=== PATIENT | female | born 1935 | race Caucasian/White ===

== ENCOUNTER 2018-05-16 10:56 | Inpatient (IN) | payer OTHER ==
[~2018-05-16] VITALS: Ht 162.6 cm; Wt 103.9 kg
[~2018-05-16 10:56] MED LIST: ASPIRIN325 PO; COLACE 100 MG100 MG PO; GEMFIBROZIL 60600 MG PO; LEXAPRO 10 MG T10 M1 PO; LOTENSIN20 MG PO; NIASPAN 500 MG500 M1 PO; OMEPRAZOLE20 MG PO; ONDANSETRON HCL4 M2 PO; PERCOCET PO; PRAVACHOL40 MG PO; PREMARIN0.625 MG PO; PREMARIN30 GM VAG; PROTONIX40 M1 PO; SULFAMETHOXAZO1 EAC1 PO; VERAPAMIL ER120 MG PO
[2018-05-16 10:57] VITALS: BP 168/80
[2018-05-16 11:41] LABS: URINE BILIRUBIN NEGATIVE (Negative); URINE CLARITY CLEAR; URINE COLOR YELLOW; URINE GLUCOSE-RANDOM* NEGATIVE (Negative); URINE KETONES NEGATIVE (Negative); URINE PROTEIN (DIPSTICK) NEGATIVE (Negative)
[2018-05-16 11:42] LABS: URINE BLOOD NEGATIVE (Negative); URINE LEUKOCYTES-REFLEX NEGATIVE (Negative); URINE NITRITE-REFLEX NEGATIVE (Negative); URINE UROBILINOGEN 0.2 E.U./dl (0.2-1.0)
[2018-05-16 12:04] LABS: ABSOLUTE NEUTROPHILS 5.7 thou/uL (1.4-8.2); BASOPHILS 0.4 % (0.0-2.0); EOSINOPHILS 1.2 % (0.0-3.0); HEMOGLOBIN 13.6 gm/dL (12.0-15.0); LYMPHOCYTES 9.9 % (24.0-44.0); MCH 30.2 pg (26.0-34.0); MCV 88.9 fL (80.0-100.0); MONOCYTES 6.2 % (1.0-8.0); PLATELET COUNT 183 thou/uL (150-400); POLYS 82.3 % (36.0-66.0); RDW 13.2 % (10.5-14.5); WBC 6.9 thou/uL (4.0-11.0)
[2018-05-16 12:15] LABS: CALCIUM 9.7 mg/dL (8.5-10.1); CREATININE 1.1 mg/dL (0.6-1.0); POTASSIUM 4.2 mmol/L (3.5-5.1)
[2018-05-16] MEDS ORDERED: ASPIRIN325 PO (13:50)
[2018-05-16] MEDS ORDERED: ELLURA200 MG PO (14:01)
[2018-05-16] MEDS ORDERED: AAA-MED REC COMPLETE PO (14:07)
[2018-05-16 14:56] VITALS: BP 168/52
[2018-05-16] MEDS ORDERED: MACROBID 100 M100 M2 PO (15:40)
[2018-05-16 15:42] VITALS: BP 133/66
[2018-05-16 16:00] VITALS: BP 155/77
--- NOTE | 2018-05-16 19:25 | NUR ---
ASSUMED CARE AT 1600, SHIFT ASSESSMENT DONE, ADMISSION COMPLETED. ORDERS IMPLEMENTED. VSS. DENIES PAIN AT REST, SOME PAIN WITH ACTIVITY. REFUSED TO TAKE PAIN MED AT THIS TIME. REPROT GIVEN TO NIGHT NURSE.
[2018-05-16 19:53] VITALS: BP 150/70
[2018-05-16 23:59] VITALS: BP 152/76
--- NOTE | 2018-05-17 03:49 | NUR ---
Assummed care of pt at 1900. Pt a&o x4. States she only feels pain when moving. Muscle relaxant given at hs. No pain meds requested. Assist x1 to bedside commode. Pt calls appropriately. Will continue to monitor.
[2018-05-17 04:00] VITALS: BP 141/70
[2018-05-17 07:25] VITALS: BP 142/66
[2018-05-17] MEDS ORDERED: HYDROCODON-ACE1 EAC7 PO (09:46)
[2018-05-17] MEDS ORDERED: CYCLOBENZAPRINE5 MG PO (09:46)
[2018-05-17 10:18] VITALS: BP 142/66
--- NOTE | 2018-05-17 13:46 | NUR ---
ASSESSMENT: CM REVIEWED CHART AND MET WITH PATIENT AT THE BEDSIDE. PT WAS ADMITTED FOR INTRACTABLE BACK PAIN. PT REPORTS SHE LIVES IN A HOUSE ALONE. PT REPORTS HAVING 5 STEPS WITH A HANDRAIL TO ENTER AND NO STEPS SHE HAS TO USE ONCE INSIDE. PT REPORTS HAVING A BASEMENT BUT DOES NOT GO DOWN THERE. PT REPORTS SHE AMBULATES USING A WALKER. PT REPORTS SHE HAS HAD HH IN THE PAST BUT NOT SURE WHAT AGENCY. PT HAS ALSO BEEN TO [facility] IN THE PAST. PT REPORTS HAVING A GRAB BAR IN HER WALK IN SHOWER WELL A SHOWER CHAIR. PT STATES SHE IS INDEPENDENT WITH ADLS. CM DISCUSSED ROLE. PT STATES SHE IS INTERESTED IN GOING [facility] STATING THEY CAN ACCEPT THE PATIENT TODAY. CM NOTIFIED ATTENDING. CM ALSO SPOKE WITH PATIENTS DAUGHTER THAO TO UPDATE AND SHE IS AGREEABLE.
[2018-05-17 16:35] VITALS: BP 135/57
== END 2018-05-17 20:30 | DRG 551 ==
LOC: ER 10:56 → 4E 13:11 → EROBS 13:11 → 4E 15:52
PROVIDERS: Nurse Practitioner Family; ADMIT Hospitalist
DX: M54.16 Radiculopathy, lumbar region (principal); E43 Unspecified severe protein-calorie malnutrition; N17.9 Acute kidney failure, unspecified; M62.830 Muscle spasm of back; I10 Essential (primary) hypertension; F32.9 Major depressive disorder, single episode, unspecified; G62.9 Polyneuropathy, unspecified; M48.061 Spinal stenosis, lumbar region without neurogenic claudication; Z96.652 Presence of left artificial knee joint; Z60.2 Problems related to living alone; Z87.440 Personal history of urinary (tract) infections; Z87.11 Personal history of peptic ulcer disease; Z79.82 Long term (current) use of aspirin; Z79.899 Other long term (current) drug therapy; Z88.8 Allergy status to other drugs, medicaments and biological substances; Z88.7 Allergy status to serum and vaccine
CPT/HCPCS: 10084

== ENCOUNTER 2018-05-17 15:02 | Inpatient (IN) | payer OTHER ==
[~2018-05-17] VITALS: Ht 162.6 cm; Wt 103.4 kg
[~2018-05-17 15:02] MED LIST changes: +AAA-MED REC COMPLETE PO; +CYCLOBENZAPRINE5 MG PO; +ELLURA200 MG PO; +HYDROCODON-ACE1 EAC7 PO; +MACROBID 100 M100 M2 PO
[2018-05-17 21:00] VITALS: BP 152/59
[2018-05-18 04:09] LABS: CALCIUM 9.2 mg/dL (8.5-10.1); CREATININE 1.4 mg/dL (0.6-1.0); POTASSIUM 4.8 mmol/L (3.5-5.1)
[2018-05-18 04:23] LABS: HEMATOCRIT 37.9 % (37.0-47.0); HEMOGLOBIN 12.6 gm/dL (12.0-15.0); MCH 29.7 pg (26.0-34.0); MCHC 33.1 g/dL (28.0-37.0); MCV 89.7 fL (80.0-100.0); RBC 4.23 mil/uL (4.20-5.00); RDW 13.1 % (10.5-14.5); WBC 11.6 thou/uL (4.0-11.0)
[2018-05-18 07:20] VITALS: BP 116/53
[2018-05-18 07:45] VITALS: BP 186/94
[2018-05-18 10:15] VITALS: BP 120/45
[2018-05-19 09:22] VITALS: BP 141/50
[2018-05-19 20:00] VITALS: BP 119/56
[2018-05-20 08:00] VITALS: BP 134/70
[2018-05-20 20:18] VITALS: BP 130/68
[2018-05-21 08:10] VITALS: BP 141/70
[2018-05-21 19:15] VITALS: BP 118/54
[2018-05-22 07:15] VITALS: BP 121/51
[2018-05-22 19:02] VITALS: BP 126/52
[2018-05-23 08:30] VITALS: BP 121/70
[2018-05-23 19:41] VITALS: BP 129/52
[2018-05-24 06:29] LABS: BASOPHILS 0.5 % (0.0-2.0); EOSINOPHILS 3.7 % (0.0-3.0); HEMATOCRIT 36.3 % (37.0-47.0); LYMPHOCYTES 17.5 % (24.0-44.0); MCH 29.8 pg (26.0-34.0); MCHC 33.1 g/dL (28.0-37.0); MCV 90.1 fL (80.0-100.0); MONOCYTES 8.1 % (1.0-8.0); PLATELET COUNT 189 thou/uL (150-400); POLYS 70.2 % (36.0-66.0); RBC 4.03 mil/uL (4.20-5.00); RDW 13.3 % (10.5-14.5); WBC 5.7 thou/uL (4.0-11.0)
[2018-05-24 06:36] LABS: CALCIUM 9.4 mg/dL (8.5-10.1); CREATININE 1.3 mg/dL (0.6-1.0); MAGNESIUM 2.1 mg/dL (1.8-2.4); POTASSIUM 4.9 mmol/L (3.5-5.1)
[2018-05-24 08:06] VITALS: BP 127/64
--- NOTE | 2018-05-24 11:59 | HC ---
[facility] [place] [address] CONSULTATION Name: YOVANY HUI Room #: 501-A [facility] IN M.R.#: [id number] Admission: 05/17/18 Attend Phys: Santiago Vann MD Discharge: Date of : 34 Report #: [id number] THIS REPORT FOR: //name// CC: Santiago Gregorioe [facility] DATE OF SERVICE: 05/22/2018 NEUROBEHAVIORAL STATUS EXAM ATTENDING PHYSICIAN: Santiago Vann MD. [employer] AGENT: Cesar Buck, PhD. CLINICAL PRESENTATION: The patient is an 82-year-old female admitted to the rehabilitation unit at [facility] for a comprehensive inpatient rehabilitation program to improve functional mobility, activities of daily living and self-care and mental status secondary to deficits from lumbar radiculopathy with bilateral lower extremity weakness. The patient reports having been at home and experiencing severe pain that left her unable to stand or walk and requiring hospitalization. She was at home in severe pain when she called her daughter who assisted in having her transferred to the Emergency Room for assessment and treatment. The assessment also includes gait instability, severe lumbar spinal stenosis, paraspinal muscle spasms, premorbid peripheral neuropathy, degenerative arthritis with a prior history of left total knee replacement, hypertension, depression and a history of recent urinary tract infection and tooth abscess. A complete description of her medical condition and history can be found in her medical record. Neuropsychological consultation was requested to provide assistance in the assessment of cognitive and emotional status and to provide recommendations and services. Prior to the most recent medical event, she was living by herself in her own home. Her daughter lives nearby. She has 2 children. 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 Her about 9 years ago. He reportedly carried the diagnosis of Parkinson's disease and then also became very paranoid and difficult to manage. He was subsequently transferred into long-term care. TECHNIQUES UTILIZED: Clinical interview, review of medical records, staff consultation and behavioral observation, mini mental status exam 2 standard version, clock drawing and letter category fluency assessment. EXAMINATION FINDINGS: The patient was alert and cooperative with the assessment. She accurately described events surrounding her admission. There is no evidence of aphasia. She does not report auditory or visual [facility] [address] [place] [address] CONSULTATION Name: YOVANY HUI Room #: 501-A [facility] IN M.R.#: [id number] Admission: 05/17/18 Attend Phys: Santiago Vann MD Discharge: Date of : 34 Report #: [id number] hallucinations. There is no suicidal ideation. She describes her symptoms to include increased anxiety in regard to her concern about returning home and being able to manage without assistance. Difficulty with memory and word finding are also reported. She does not describe difficulty with sleep, appetite or depression. Longstanding history of dyslexia is described. Additionally, she reports difficulty with procrastination and starting but not finishing projects. Symptoms of attention deficit disorder were likely present through childhood, but not formally assessed or treated. Her performance on the MMSE 2 brief version was within normal limits with a raw score of 14 of 16, T-score of 45, percentile rank of 31. Performance on the MMSE 2 standard version suggests mild impairment with a raw score of 24, T score of 40 and percentile rank of 16. The patient was 1/5 for serial sevens, 2/2 for naming, 1/1 for repetition, 3/3 for auditory comprehension and 1/1 for writing and copying a simple geometric design. The patient had difficulty with hand placement during clock drawing. She was able to accurately put in the numbers of clock, however, visual spatial disorganization is noted. The patient is primarily presenting with difficulty in sustained concentration and divided attention along with letter fluency. Deficits in executive functioning, primarily affecting anterior cerebral functioning is noted on the assessment. 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 Adjustment disorder with anxious mood. RECOMMENDATIONS: Continued assistance and development of compensatory strategies for cognitive deficits. Cognitive issuess are related to procrastination, word finding and memory. Use of relaxation techniques will also assist in the management of anxiety. She may benefit from a followup neuropsych in approximately 6 months to clarify the severity of cognitive deficits. Meanwhile assistance in the management of medications and finances will likely be necessary to maintain safety. [address] [address] CONSULTATION Name: YOVANY HUI Room #: 501-A [facility] IN M.R.#: [id number] Admission: 05/17/18 Attend Phys: Santiago Vann MD Discharge: Date of : 34 Report #: [id number] Thank you very much for allowing me to provide the consultation on this patient. <ELECTRONICALLY SIGNED> By: Cesar Buck, PhD 05/24/18 [id number] Cesar Buck, PhD /nt
[2018-05-24 19:25] VITALS: BP 126/56
[2018-05-25 08:00] VITALS: BP 132/66
[2018-05-25 19:11] VITALS: BP 131/56
[2018-05-26 08:33] VITALS: BP 126/68
[2018-05-26 19:40] VITALS: BP 135/50
[2018-05-26 20:13] LABS: URINE BILIRUBIN NEGATIVE (Negative); URINE BLOOD NEGATIVE (Negative); URINE CLARITY CLEAR; URINE COLOR YELLOW; URINE GLUCOSE-RANDOM* NEGATIVE (Negative); URINE KETONES NEGATIVE (Negative); URINE LEUKOCYTES-REFLEX NEGATIVE (Negative); URINE NITRITE-REFLEX NEGATIVE (Negative); URINE PROTEIN (DIPSTICK) NEGATIVE (Negative); URINE UROBILINOGEN 0.2 E.U./dl (0.2-1.0)
[2018-05-27 09:19] VITALS: BP 134/59
[2018-05-27 19:40] VITALS: BP 142/56
[2018-05-28 08:56] VITALS: BP 128/45
[2018-05-28 19:20] VITALS: BP 123/54
[2018-05-28 19:25] VITALS: BP 123/54
[2018-05-29 08:12] VITALS: BP 144/57
[2018-05-29 20:12] VITALS: BP 129/43
[2018-05-30 07:51] VITALS: BP 156/85
[2018-05-30 09:33] VITALS: BP 156/85
[2018-05-30] MEDS ORDERED: VITAMIN B-12500 MCG PO (09:39)
[2018-05-30] MEDS ORDERED: NYAMYC15 GM TOP (09:39)
[2018-05-30] MEDS ORDERED: ACIDOPHILUS1 EAC4 PO (09:39)
[2018-05-30] MEDS ORDERED: COLACE100 MG PO (09:39)
[2018-05-30] MEDS ORDERED: MACROBID 100 M100 M1 PO (09:39)
[2018-05-30] MEDS ORDERED: VOLTAREN GEL 1100 G2 TOP (09:39)
[2018-05-30] MEDS ORDERED: NEURONTIN 300300 M1 PO (09:45)
--- NOTE | 2018-05-31 09:56 | H ---
[facility] [place] [address] HISTORY AND PHYSICAL Name: YOVANY HUI Room #: 501-A [facility] IN M.R.#: [id number] Admission: 05/17/18 Attend Phys: Santiago Vann MD Discharge: 05/30/18 Date of : 34 Report #: [id number] THIS REPORT FOR: //name// CC: Santiago Buck [facility] DATE OF SERVICE: 05/18/2018 HISTORY OF PRESENT ILLNESS: The patient is an 82-year-old white female who was originally admitted to [facility] on 05/16/2018 with intractable back pain of sudden onset with inability to ambulate. She also had a recent tooth abscess, status post root canal and antibiotics and developed a urinary tract infection and was on antibiotics at home for that. She had a decline in her functional mobility with her intractable low back pain. She was diagnosed with lumbar radiculopathy with bilateral lower extremity weakness. She was noted to have severe central spinal stenosis L4-L5, severe disk space narrowing L2-L3 and L5-S1. She was given a dose of Solu-Medrol and started on a muscle relaxer, pain medications. She was noted to have a significant decline from her premorbid functional status. She has not been admitted for acute in-hospital inpatient rehabilitation. PAST MEDICAL HISTORY: Includes hypertension and bladder infections. PAST SURGICAL HISTORY: Tonsillectomy and adenoidectomy. ALLERGIES: She does have multiple allergies, please see the full list as noted. MEDICATIONS: Please see the current medication list. This does include vitamins, herbals, and supplements as best reported. PAST MEDICAL HISTORY: Includes history of peptic ulcer disease, chronic back pain, and hypertension. HABITS: No history of tobacco abuse, alcohol apparently has one drink per week. No history of recreational drug use. SOCIAL HISTORY: She lives in a house alone, was independent with ADLs and IADLs, still driving, utilized a front-wheeled walker, which she only used on occasion when she was out in the community and on occasion at home. Denied any falls the past year. REVIEW OF SYSTEMS: Complains of some generalized weakness. No fever or chills. No cough, shortness of breath. No chest pain or syncopal episodes. No abdominal pain or change in stools. She does have the back pain and bilateral lower extremity pain complaints, which appeared to be gradually improving. No dizziness or headache. [facility] [address] [place] [address] HISTORY AND PHYSICAL Name: YOVANY HUI Room #: 501-A [facility] IN [facility].#: [id number] Admission: 05/17/18 Attend Phys: Santiago Vann MD Discharge: 05/30/18 Date of : 34 Report #: [id number] PHYSICAL EXAMINATION: GENERAL: The patient is an 82-year-old white female, in no obvious distress. VITAL SIGNS: Last recorded temperature 97.8, pulse 90, respirations 15, and blood pressure 186/94. The patient is alert. HEENT: Appeared to be benign. Cranial nerves are grossly intact. Facies are symmetric. She is somewhat overweight. CHEST: Sounds clear to auscultation. CARDIOVASCULAR: Regular rate and rhythm. ABDOMEN: Bowel sounds positive and nontender. GENITOURINARY/RECTAL: Deferred. NEUROLOGIC: She has functional range of motion of both upper extremities. Strength is a grade 4-/5. In her lower extremities, she notes a prior history of chronic lower extremity lymphedema, which is a premorbid problem. Lower extremities, no focal calf swelling. I would grade her strength at a 3+/5 to 4-/5. No focal calf swelling. She has been min assist with basic transfers, min assist with short distance walker ambulation. ASSESSMENT: 1. Lumbar radiculopathy with bilateral lower extremity weakness. 2. Gait instability. 3. Severe lumbar spinal stenosis. 4. Paraspinal muscle spasms. 5. Premorbid peripheral neuropathy. There is some decreased sensation in distal lower extremities, which is premorbid. 6. Degenerative arthritis with a prior history of a left total knee replacement. 7. Hypertension. 8. Depression. 9. History of a recent urinary tract infection and tooth abscess. PLAN: The patient is admitted for acute in-hospital inpatient rehabilitation. From a postadmission physician evaluation perspective, there are no relevant changes since the preadmission screening. Please see the above review of prior and current medical and functional conditions and comorbidities. Please see the patient's previous and current functional status. As far as risk of complications, the patient has multiple medical comorbidities as noted above. Initial plan of care involves the interdisciplinary acute inpatient rehabilitation program with goal of maximizing the patient's functional independence, so that she can hopefully return back to her prior living situation. Measurable functional goals would be for the patient to become modified independent with transfers, mobility, ADLs so she can return back to her prior living situation. Prognosis is reasonably good with estimated length of stay probably 7-10 days, potentially longer if needed. Potential barriers would include her above noted multiple comorbidities and decreased functional status. [facility] [address] [place] [address] HISTORY AND PHYSICAL Name: YOVANY HUI Room #: 501-A [facility] IN M.R.#: [id number] Admission: 05/17/18 Attend Phys: Santiago Vann MD Discharge: 05/30/18 Date of : 34 Report #: [id number] The patient meets diagnostic criteria for an acute in-hospital inpatient rehabilitation stay. She meets the medical necessity criteria and we will continue to have the proposal consultant physicians follow along with her on rehabilitation. She does have the tolerance for therapies and has appropriate discharge goals back to the home setting. <ELECTRONICALLY SIGNED> By: Santiago Vann MD 05/31/18 [id number] Santiago Vann MD /nt
--- NOTE | 2018-05-31 09:56 | PLAN ---
[facility] [place] [address] REHAB UNIT PLAN OF CARE Name: YOVANY HUI Room #: 501-A [facility] IN M.R.#: [id number] Admission: 05/17/18 Attend Phys: Santiago Vann MD Discharge: 05/30/18 Date of : 34 Report #: [id number] THIS REPORT FOR: //name// CC: Santiago Vann [facility] DATE OF SERVICE: 05/20/2018 PROGRESS NOTE/OVERALL PLAN OF CARE SUBJECTIVE: The patient seen back today in followup. No new complaints. Some back pain, lower extremity pain, but appears to be gradually improving. She does have p.r.n. hydrocodone, has topical Voltaren, also Flexeril. She has been working in therapies with transfers mod assist, gait min assist, 75 feet front-wheeled walker. In occupational therapy, lower body dressing is mod assist. ASSESSMENT: 1. Lumbar radiculopathy with bilateral lower extremity weakness. 2. Gait instability. 3. Severe lumbar spinal stenosis. 4. Paraspinal muscle spasms. 5. Degenerative arthritis with history of left total knee replacement. 6. Peripheral neuropathy premorbid. 7. Hypertension. 8. Depression. 9. Recent urinary tract infection and tooth abscess. 10. B12 deficiency. PLAN: The overall plan of care is based on the preadmission screen, post-admission physician evaluation and information garnered from therapy assessments. 1. Estimated length of stay is probably at least 10 days. 2. Medical prognosis is reasonably good. 3. Anticipated interventions includes the interdisciplinary acute inpatient rehabilitation program with PT and OT, rehab nursing working on medication management, skin care prophylaxis, bowel and bladder issues and nursing education. We are having the internal audit consultant physicians involved as well as the rest of the interdisciplinary acute rehabilitation team. 4. Anticipated functional outcomes would be for the patient to become modified independent at least at the walker level, so that she can return back to the home setting. 5. Discharge destination would be back to her house alone. 6. Expected therapy by discipline includes PT and OT 1-1/2 hours per day each [address] [address] REHAB UNIT PLAN OF CARE Name: YOVANY HUI Room #: 501-A DIS IN [facility].#: [id number] Admission: 05/17/18 Attend Phys: Santiago Vann MD Discharge: 05/30/18 Date of : 34 Report #: [id number] five days a week throughout the duration of the acute inpatient rehabilitation stay. <ELECTRONICALLY SIGNED> By: Santiago Vann MD 05/31/18 [id number] [id number] Santiago Vann MD /nt
== END 2018-05-30 13:20 | disposition home health service (06) | DRG 552 ==
LOC: ENTRNSPT 05-30 13:14 → EDTRNSPTSTS 05-30 13:18
PROVIDERS: Nurse Practitioner; Nurse Practitioner Family; ADMIT Physical Medicine & Rehabilitation
DX: M54.16 Radiculopathy, lumbar region (principal); N17.9 Acute kidney failure, unspecified; N39.0 Urinary tract infection, site not specified; N18.4 Chronic kidney disease, stage 4 (severe); R26.9 Unspecified abnormalities of gait and mobility; M48.061 Spinal stenosis, lumbar region without neurogenic claudication; M62.838 Other muscle spasm; Z96.642 Presence of left artificial hip joint; F32.9 Major depressive disorder, single episode, unspecified; M19.90 Unspecified osteoarthritis, unspecified site; E78.5 Hyperlipidemia, unspecified; E53.8 Deficiency of other specified B group vitamins; I12.9 Hypertensive chronic kidney disease with stage 1 through stage 4 chronic kidney disease, or unspecified chronic kidney disease; F43.20 Adjustment disorder, unspecified; F90.0 Attention-deficit hyperactivity disorder, predominantly inattentive type; G31.84 Mild cognitive impairment of uncertain or unknown etiology; Z96.651 Presence of right artificial knee joint; Z87.440 Personal history of urinary (tract) infections; Z88.6 Allergy status to analgesic agent; Z88.1 Allergy status to other antibiotic agents; Z88.7 Allergy status to serum and vaccine; Z87.11 Personal history of peptic ulcer disease; Z88.8 Allergy status to other drugs, medicaments and biological substances
CPT/HCPCS: 10112